=== PATIENT | male | born 1980 | race Two or more races ===

== ENCOUNTER 2020-05-13 12:22 | Inpatient (IN) | payer OTHER ==
[~2020-05-13] VITALS: Ht 172.7 cm; Wt 92.5 kg
[2020-06-22] MEDS ORDERED: LIPITO PO (12:35)
[2020-06-22] MEDS ORDERED: COZAAR50 MG PO (12:35)
[2020-06-29] MEDS ORDERED: ATORVASTATIN CA20 MG PO (11:24)
== END 2020-07-02 17:20 | disposition home or self-care (01) | DRG 330 ==
LOC: SURH 06-29 07:00 → O/R 06-29 09:12 → SURH 06-29 11:00
PROVIDERS: ADMIT Colon & Rectal Surgery; ATTEND Colon & Rectal Surgery
PROC: 0DJD8ZZ Inspection of Lower Intestinal Tract, Via Natural or Artificial Opening Endoscopic (ICD-10-PCS; 2020-06-29)
PROC: 0DTN4ZZ Resection of Sigmoid Colon, Percutaneous Endoscopic Approach (ICD-10-PCS; principal; 2020-06-29 07:00)
PROC: 4A12X4Z Monitoring of Cardiac Electrical Activity, External Approach (ICD-10-PCS; 2020-06-30)
DX: K57.32 Diverticulitis of large intestine without perforation or abscess without bleeding (principal); K92.1 Melena; J95.89 Other postprocedural complications and disorders of respiratory system, not elsewhere classified; J98.11 Atelectasis; Z20.828 Contact with and (suspected) exposure to other viral communicable diseases; R09.02 Hypoxemia; J45.20 Mild intermittent asthma, uncomplicated; G47.33 Obstructive sleep apnea (adult) (pediatric)